=== PATIENT | male | born 1985 ===

== ENCOUNTER 2017-05-22 14:08 | Emergency (ER) | payer OTHER ==
[2017-05-22 14:14] VITALS: TEMP 97
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
[2017-05-22 15:50] VITALS: BP 120/70; PULSE 52; RESP 18
--- NOTE | 2017-05-22 15:50 | CT ---
PROCEDURE: CT Chest without contrast HISTORY: trauma COMPARISON: None. TECHNIQUE: Contiguous axial images were obtained through the chest without intravenous contrast enhancement. Sagittal and coronal reconstructions were performed. Radiation dose (DLP): 551.04 mGy-cm. This CT exam was performed using one or more of the following dose reduction techniques: Automated exposure control, adjustment of the mA and/or kV according to patient size, and/or use of iterative reconstruction technique. FINDINGS: LUNGS: Clear lungs. Visualized airway clear. MEDIASTINUM: Unremarkable thoracic aorta. No aneurysm. Normal sized heart. Main pulmonary artery unremarkable. No vascular congestion. No lymphadenopathy. PLEURA: No pleural fluid. No pneumothorax. BONES: No fracture. No destructive lesion. UPPER ABDOMEN: Grossly unremarkable. OTHER FINDINGS: None. IMPRESSION: Unremarkable non-contrast enhanced CT of the chest. No pneumothorax, pulmonary contusion or fracture identified. No pleural or pericardial effusion identified either.
[2017-05-22 16:55] VITALS: O2SAT 99
--- NOTE | 2017-05-24 12:10 | CARD ---
APPROVED REPORT EKG Measurement Heart [id number] <Conclusion> Sinus bradycardia Possible Inferior infarct, age undetermined
== END 2017-05-22 18:04 | disposition home or self-care (01) ==
LOC: H.ER 14:08
DX: S20.219A Contusion of unspecified front wall of thorax, initial encounter (principal); W19.XXXA Unspecified fall, initial encounter; Y93.55 Activity, bike riding